=== PATIENT | female | born 1995 | race Caucasian/White ===

== ENCOUNTER 2018-01-13 05:27 | Day surgery (SDC) | payer SELFPAY ==
[~2018-01-13] VITALS: Ht 154.9 cm; Wt 64.2 kg
[2018-01-13 06:19] VITALS: BP 118/69; PULSE 76; TEMP 98.5
[2018-01-13] MEDS ORDERED: MAGNESIUM250 M1 PO (06:30)
[2018-01-13] MEDS ORDERED: B-121000 MCG PO (06:30)
[2018-01-13] MEDS ORDERED: VITAMIN D31000 I1 PO (06:32)
[2018-01-13] MEDS ORDERED: LEXAPRO 10MG10 MG PO (06:33)
[2018-01-13] MEDS ORDERED: ADVIL200 MG PO (06:35)
[2018-01-13] MEDS ORDERED: IBU800 M1 PO (08:23)
[2018-01-13] MEDS ORDERED: NORCO 325 MG-51 TAB PO (08:24)
[2018-01-13 09:00] VITALS: BP 109/60; PULSE 69; TEMP 97.3
[2018-01-13 09:15] VITALS: BP 106/69; PULSE 76
[2018-01-13 09:30] VITALS: BP 105/73; PULSE 68
[2018-01-13 09:45] VITALS: BP 92/59; PULSE 80
[2018-01-13 10:55] VITALS: BP 106/60; PULSE 83
== END 2018-01-13 11:46 | disposition home or self-care (01) ==
LOC: SDCO 05:27
DX: N92.0 Excessive and frequent menstruation with regular cycle (principal); N94.6 Dysmenorrhea, unspecified; G89.29 Other chronic pain; R10.2 Pelvic and perineal pain; N80.9 Endometriosis, unspecified; F41.8 Other specified anxiety disorders; Z88.5 Allergy status to narcotic agent
CPT/HCPCS: J1100; J1170; J1885; J2250; J2310; J2405; J2704; J2710; J3010; J7120

== ENCOUNTER 2018-04-05 19:45 | Emergency (ER) | payer OTHER ==
[~2018-04-05] VITALS: Ht 154.9 cm; Wt 68.2 kg
[~2018-04-05 19:45] MED LIST: ADVIL200 MG PO; B-121000 MCG PO; IBU800 M1 PO; LEXAPRO 10MG10 MG PO; MAGNESIUM250 M1 PO; NORCO 325 MG-51 TAB PO; VITAMIN D31000 I1 PO
[2018-04-05 19:54] VITALS: TEMP 99.1
[2018-04-05 20:37] LABS: BASO # 0.1 (0.0-0.2); BASO % 0.3 % (0.0-2.0); EOS % 0.1 % (0-4.0); GRAN # 17.7 (1.4-6.5); HEMATOCRIT 41.8 % (37.0-47.0); HEMOGLOBIN 14.4 g/dl (12.5-16.0); LYMPH # 1.3 (1.2-3.4); LYMPH % 6.4 % (20.0-51.0); MEAN CELL VOLUME 91 fl (80.0-100.0); MEAN CORPUSCULAR HEMOGLOBIN 31 pg (27.0-31.0); MEAN CORPUSCULAR HGB CONC 34 g/dl (33.0-37.0); MEAN PLATELET VOLUME 10.2 fl (7.4-10.4); MONO # 1.6 (0.1-0.6); MONO % 7.6 % (1.7-9.3); PLATELET COUNT 291 K/mm3 (130-400); RED BLOOD COUNT 4.61 M/mm3 (4.10-5.30); REDCELL DISTRIBUTION WIDTH-CV 12.4 % (11.5-14.5)
[2018-04-05 20:44] LABS: MONOSCREEN NEGATIVE
[2018-04-05] MEDS ORDERED: CEPHALEXIN500 M1 PO (21:05)
[2018-04-05 21:13] LABS: BILIRUBIN,TOTAL 0.7 mg/dL (0.0-1.0); C-REACTIVE PROTEIN 5.7 mg/dL (0.0-0.9); CALCIUM 9.3 mg/dL (8.4-10.2); CREATININE, serum 0.58 mg/dL (0.52-1.25); POTASSIUM 3.9 mmol/L (3.4-5.0); TOTAL PROTEIN 7.2 gm/dL (6.4-8.2)
[2018-04-05] MEDS ORDERED: LO LOESTRIN FE1 TAB PO (21:41)
[2018-04-05 21:55] VITALS: BP 103/65; PULSE 82
== END 2018-04-05 21:55 | disposition home or self-care (01) ==
LOC: COL.ER 19:45
PROVIDERS: Emergency Medicine
DX: J02.0 Streptococcal pharyngitis (principal); F32.9 Major depressive disorder, single episode, unspecified; Z90.89 Acquired absence of other organs
CPT/HCPCS: J0690; J7030

== ENCOUNTER 2019-03-09 17:27 | Emergency (ER) | payer OTHER ==
[~2019-03-09] VITALS: Ht 154.9 cm; Wt 72.7 kg
[~2019-03-09 17:27] MED LIST changes: +CEPHALEXIN500 M1 PO; +LO LOESTRIN FE1 TAB PO
[2019-03-09 17:41] VITALS: BP 131/76
[2019-03-09 18:03] LABS: COLLECTION METHOD CLEAN CATCH
[2019-03-09 18:11] LABS: PH 5 (5-8); SQUAMOUS EPITHELIAL 0-2 /hpf; URINE APPEARANCE Clear; URINE BACTERIA None Seen /hpf; URINE BILIRUBIN Negative (NEGATIVE); URINE BLOOD Negative (NEGATIVE); URINE COLOR Yellow; URINE GLUCOSE Negative (NEGATIVE); URINE KETONE Negative (NEGATIVE); URINE LEUKOCYTE ESTERASE Negative (NEGATIVE); URINE NITRATE Negative (NEGATIVE); URINE PROTEIN(semi-quant) Negative (NEGATIVE); URINE RBC 0-2 /hpf; URINE UROBILINOGEN Negative (NEGATIVE)
[2019-03-09] MEDS ORDERED: ZOFRAN ODT4 MG PO (18:43)
[2019-03-09 19:00] VITALS: PULSE 81; TEMP 98.3
== END 2019-03-09 19:10 | disposition home or self-care (01) ==
LOC: COL.ER 17:27
PROVIDERS: Physician Assistant
DX: K52.9 Noninfective gastroenteritis and colitis, unspecified (principal)
CPT/HCPCS: J1885; J2405; Q9967